=== PATIENT | male | born 1985 | race Caucasian/White ===

== ENCOUNTER 2020-07-22 10:56 | Emergency (ER) | payer SELFPAY ==
[~2020-07-22] VITALS: Ht 177.8 cm; Wt 91.0 kg
--- NOTE | 2020-07-22 11:00 | PHYS DOC ---
Adult General Chief Complaint Chief Complaint: HEADACHE HPI HPI Patient is a 35-year-old male presenting for headache. Reports this is an acute on chronic problem. Patient reports working in [place] and does vigorous physical labor daily. As a result, he has history of tension headaches resulting from tight paracervical muscles. Patient has been seen by his primary care physician but "they did nothing for me". States he started having similar tension-like headache that developed last Wednesday. He was seen at [facility] emergency room on Wednesday and after formal evaluation was given IM Toradol and discharged home with continued supportive care. Patient has had similar dull bandlike headache since that time. He has taken a total of 2 g Tylenol since symptom onset 5 days ago, has not taken anything else in attempt to alleviate his symptoms. No fever, recent sick contacts, no syncope or vision changes, no changes in motor or sensory function, no neck stiffness, no history of meningeal signs, he reports he is up-to-date on all vaccinations Review of Systems Review of Systems Fourteen body systems of review of systems have been reviewed. See HPI for pertinent positives and negative responses, other rapp all other systems are negative, non-pertinent or non-contributory Physical Exam Physical Exam Constitutional: Pt is oriented to person, place, and time. Pt appears well-developed and well- nourished. HEENT: Head: Normocephalic and atraumatic. External ears unremarkable, no christiansen sign Conjunctivae and EOM are normal. Pupils are equal, round, and reactive to light. Oropharynx is clear and moist. No hematomas or lacerations or abrasions to face or scalp OP clear, no blood, no malocclusion, dentition intact Nares clear, no nasal septal hematoma Midface stable Neck: C-spine midline nontender, no step-offs, taught paracervical muscles bilaterally Cardiovascular: Normal rate, regular rhythm and normal heart sounds. Pulmonary/Chest: Effort normal and breath sounds normal. No respiratory distress. No wheezes. CTA bilaterally Abdominal: Soft. Bowel sounds are normal. Pt exhibits no distension. There is no tenderne ss. Musculoskeletal: No bony tenderness to extremities, no deformities, full ROM extremities Chest wall stable Pelvis stable and non-tender No vertebral TTP and spine without stepoffs Neurological: Pt is alert and oriented to person, place, and time. Moving all extremities willfully, able to wiggle all fingers and toes Alert and oriented x 3 Sensation grossly intact Cranial nerves II through XII intact No meningeal signs, negative Kernig and Brudzinski signs Skin: Skin is warm and dry. No abrasions, no lacerations Psychiatric: Behavior is appropriate for situation Current Patient Data Vital Signs Vital Signs Date Time Temp Pulse Resp B/P (MAP) Pulse Ox O2 Delivery O2 Flow Rate FiO2 07/22/20 11:05 97.9 87 18 133/95 (108) 98 Room Air EKG EKG [] Radiology/Procedures Radiology/Procedures [] Heart Score Risk Factors: Risk Factors: DM, Current or recent (<one month) smoker, HTN, HLP, family history of CAD, obesity. Risk Scores: Risk Factors: DM, Current or recent (<one month) smoker, HTN, HLP, family history of CAD, obesity. Course & Med Decision Making Course & Med Decision Making ABCs unremarkable Comprehensive history and physical exam most consistent with tension headache. Patient low risk for meningitis, no signs or symptoms indicating suspect subarachnoid hemorrhage I discussed need to establish with primary care physician in addition to providing supportive care at home with neck stretches, heating pad and scheduled NSAIDs and/or Tylenol for as needed pain as he has not been doing this at home Prior to initiating treatment at our facility, patient left facility AGAINST MEDICAL ADVICE due to fact that he could not pay emergency room co-pay for a nonemergent ER visit Patient who had full capacity did not stay long enough to receive ER intervention, discussed role of return precautions and need for ongoing supportive care practices at home with emphasis on establishing with primary care provider Brennan Disclaimer Brennan Disclaimer This electronic medical record was generated, in whole or in part, using a voice recognition dictation system. Departure Departure: Impression: Primary Impression: Headache Additional Impression: Left against medical advice Disposition: 07 AMA/ELOPED/LWBS Condition: STABLE Referrals: PCP,NO (PCP) Problem Qualifiers MAME HIDALGO DO Jul 22, 2020 11:00
[2020-07-22 11:05] VITALS: BP 133/95
[2020-07-22] MEDS ORDERED: PROCHLORPERAZINE 10 MG/2 ML VIAL. IM ONE (11:30)
[2020-07-22] MEDS ORDERED: KETOROLAC 30 MG/ML VIAL. IM ONE (11:30)
[2020-07-22] MEDS ORDERED: ACETAMINOPHEN 325 MG TABLET PO ONE (11:30)
== END 2020-07-22 11:45 | disposition left against medical advice (07) ==
LOC: ER 10:56
DX: R51.9 Headache, unspecified (principal)
CPT/HCPCS: 99282